=== PATIENT | female | born 1940 | race African-American/Black ===

== ENCOUNTER → 2016-07-27 | Outpatient (CLI) | payer MEDICARE, BC ==
[~2016-07-27] MED LIST: ALBU05 IH; AMIO200T PO; APIX2.5T PO; BENA10TA3 PO; CA C PO; CALC-899 PO; CARV25TA47 PO; CILO100T PO; DIGO125T82 PO; FLUT1DIS3 IH; FLUT9.9S NS; GABA-531 PO; MONT10TA24 PO; MULT-1146 PO; ROSU40TA PO; SIMV40TA5 PO; SPIR25TA4 PO; TRAM50TA3 PO; VITA-297 PO; WARF1TAB PO; [UNRECOGNIZED DRUG - CODE] PO; [UNRECOGNIZED DRUG - CODE] PO
[2016-07-27 10:40] LABS: HEMATOCRIT. 37.1 % (36.0-48.0); HEMOGLOBIN. 12.7 g/dL (12.0-16.0); MEAN CORPUSCULAR VOLUME 87.5 fL (81.0-99.0); MEAN PLATELET VOLUME 7.4 fl (7.4-10.4); PLATELET 224 x1000/uL (130-400); RED BLOOD CELL COUNT 4.24 mill/uL (4.2-5.4); RED CELL DISTRIBUTION WIDTH 13.1 % (11.6-14.6)
[2016-07-27 10:47] LABS: INR 1.1
[2016-07-27 11:00] LABS: PLATELET ESTIMATE NORMAL
[2016-07-27 11:22] LABS: CLARITY URINE CLEAR (CLEAR); COLOR URINE YELLOW (YELLOW); GLUCOSE URINE NEGATIVE (NEGATIVE); KETONES URINE NEGATIVE (NEGATIVE); LEUKOCYTE ESTERASE URINE 1+ (NEGATIVE); NITRITE URINE NEGATIVE (NEGATIVE); OCCULT BLOOD URINE NEGATIVE (NEGATIVE); PROTEIN URINE NEGATIVE (NEGATIVE); SPECIFIC GRAVITY URINE 1.016 (1.005-1.030); UROBILINOGEN URINE 0.2 E.U./dL (0.2-1.0)
== END | disposition home or self-care (01) ==
LOC: RAD 09:11
PROVIDERS: ATTEND Orthopaedic Surgery
DX: Z01.818 Encounter for other preprocedural examination (principal); I51.7 Cardiomegaly; Z95.810 Presence of automatic (implantable) cardiac defibrillator
CPT/HCPCS: 36415; 71020; 80048; 81001; 85025; 85610; 85730; 93005

== ENCOUNTER → 2017-08-15 | Outpatient (CLI) | payer MEDICARE, BC ==
[~2017-08-15] MED LIST changes: +ASCO-316 PO; -SPIR25TA4 PO; +SPIR25TA6 PO; -VITA-297 PO; +VITA-340 PO; -WARF1TAB PO; +WARF1TAB85 PO; +WARF2.5T83 PO; -[UNRECOGNIZED DRUG - CODE] PO; -[UNRECOGNIZED DRUG - CODE] PO
== END | disposition home or self-care (01) ==
LOC: RAD 13:53
PROVIDERS: ATTEND Specialist
DX: I51.7 Cardiomegaly (principal); R06.09 Other forms of dyspnea
CPT/HCPCS: 71046

== ENCOUNTER 2018-09-03 13:25 | Emergency (ER) | payer BC, MEDICARE ==
[~2018-09-03] VITALS: Ht 162.6 cm; Wt 73.0 kg
[~2018-09-03 13:25] MED LIST changes: +BENA10TA10 PO; -BENA10TA3 PO
[2018-09-03] MEDS ORDERED: IPRATROPIUM BROMIDE (0.02%) 0.5MG/2.5ML NEB HHN STA (15:26)
[2018-09-03 15:51] LABS: BASOPHILS % 0.9 % (0.0-2.0); HEMATOCRIT. 33.8 % (36.0-48.0); HEMOGLOBIN. 11.4 g/dL (12.0-16.0); LYMPHOCYTES % 52.6 % (20.0-50.0); MEAN CORPUSCULAR HEMOGLOBIN 31.2 pg (28.0-32.0); MEAN CORPUSCULAR VOLUME 92.3 fL (81.0-99.0); MEAN PLATELET VOLUME 7.9 fl (7.4-10.4); MONOCYTES % 13.6 % (2.0-8.0); NEUTROPHILS % 27.9 % (40.0-76.0); PLATELET 151 x1000/uL (130-400); RED BLOOD CELL COUNT 3.66 mill/uL (4.2-5.4)
[2018-09-03 15:57] LABS: CHLORIDE 111 mEq/L (98-107)
[2018-09-03] MEDS: ALBUTEROL (0.083%) 2.5MG/3ML NEB HHN SCH ×4 (17:00→18:21)
[2018-09-03 18:45] VITALS: BP 121/61
== END 2018-09-03 18:54 | disposition home or self-care (01) ==
LOC: ER 13:25
DX: J32.9 Chronic sinusitis, unspecified (principal); R94.39 Abnormal result of other cardiovascular function study; I11.0 Hypertensive heart disease with heart failure; I50.9 Heart failure, unspecified; Z88.3 Allergy status to other anti-infective agents; Z86.711 Personal history of pulmonary embolism; Z79.01 Long term (current) use of anticoagulants; J45.909 Unspecified asthma, uncomplicated
CPT/HCPCS: 36415; 71045; 80053; 83880; 84484; 85025; 93005; 94640; 99285; J7611

== ENCOUNTER 2019-10-12 01:27 | Emergency (ER) | payer BC ==
[~2019-10-12] VITALS: Ht 162.6 cm; Wt 75.0 kg
[~2019-10-12 01:27] MED LIST changes: -BENA10TA10 PO; +BENA10TA74 PO; +DIGO125T80 PO; -DIGO125T82 PO; -MONT10TA24 PO; +MONT10TA26 PO; +SIMV-46 PO; -SIMV40TA5 PO
[2019-10-12 01:30] VITALS: BP 139/78
[2019-10-12] MEDS ORDERED: TETANUS, DIPHTHERIA, PERTUSSIS VAC/PF 0.5ML (>7YR OLD) IM ONE (03:00)
== END 2019-10-12 04:21 | disposition home or self-care (01) ==
LOC: ER 01:27
DX: L76.22 Postprocedural hemorrhage of skin and subcutaneous tissue following other procedure (principal); Y83.8 Other surgical procedures as the cause of abnormal reaction of the patient, or of later complication, without mention of misadventure at the time of the procedure; Z23 Encounter for immunization; I11.0 Hypertensive heart disease with heart failure; I50.9 Heart failure, unspecified; I48.91 Unspecified atrial fibrillation
CPT/HCPCS: 90471; 90715; 99283

== ENCOUNTER → 2020-11-17 | Outpatient (CLI) | payer BC ==
[~2020-11-17] MED LIST changes: +ALBUTEROL (0.083%) 2.5MG/3ML NEB ONE; -GABA-531 PO; +GABA-532 PO; -MONT10TA26 PO; +MONT10TA32 PO; -SIMV-46 PO; -TRAM50TA3 PO; -VITA-340 PO; -WARF1TAB85 PO; -WARF2.5T83 PO
== END | disposition home or self-care (01) ==
LOC: PF 12:51
PROVIDERS: ATTEND Internal Medicine Pulmonary Disease
DX: J45.909 Unspecified asthma, uncomplicated (principal); Z20.822 Contact with and (suspected) exposure to COVID-19; J44.9 Chronic obstructive pulmonary disease, unspecified
CPT/HCPCS: 87426; 94060; 94727; 94729

== ENCOUNTER 2021-08-25 12:02 | Emergency (ER) | payer BC ==
[~2021-08-25] VITALS: Ht 160 cm; Wt 80.0 kg
[~2021-08-25 12:02] MED LIST changes: -ALBUTEROL (0.083%) 2.5MG/3ML NEB ONE; +MONT-39 PO; -MONT10TA32 PO
[2021-08-25 12:04] VITALS: BP 132/106
[2021-08-25] MEDS ORDERED: ACETAMINOPHEN 500MG TABLET PO ONE (12:30)
[2021-08-25] MEDS ORDERED: ACET-2708 MT (14:31)
== END 2021-08-25 12:42 | disposition home or self-care (01) ==
LOC: ER 12:02
DX: S70.01XA Contusion of right hip, initial encounter (principal); E78.00 Pure hypercholesterolemia, unspecified; I11.0 Hypertensive heart disease with heart failure; I50.9 Heart failure, unspecified; J45.909 Unspecified asthma, uncomplicated; Z88.1 Allergy status to other antibiotic agents; Z79.899 Other long term (current) drug therapy; Z98.890 Other specified postprocedural states; W01.0XXA Fall on same level from slipping, tripping and stumbling without subsequent striking against object, initial encounter; Y93.89 Activity, other specified; Y92.89 Other specified places as the place of occurrence of the external cause; Y99.8 Other external cause status
CPT/HCPCS: 73502; 99283

== ENCOUNTER 2021-12-12 17:24 | Inpatient (IN) | payer BC ==
[~2021-12-12] VITALS: Ht 162.6 cm; Wt 72.6 kg
[~2021-12-12 17:24] MED LIST changes: +ACET-2708 MT; -CILO100T PO; +CILO100T3 PO
[2021-12-12 22:58] LABS: CHLORIDE 108 mEq/L (98-107)
[2021-12-12 23:00] LABS: BASOPHILS % 0.4 % (0.0-2.0); EOSINOPHILS % 1.3 % (0.0-5.0); HEMATOCRIT. 37.5 % (36.0-48.0); HEMOGLOBIN. 12.6 g/dL (12.0-16.0); LYMPHOCYTES % 31.2 % (20.0-50.0); MEAN CORPUSCULAR HEMOGLOBIN 30.2 pg (28.0-32.0); MEAN CORPUSCULAR VOLUME 89.8 fL (81.0-99.0); MEAN PLATELET VOLUME 8.4 fl (7.4-10.4); MONOCYTES % 7.4 % (2.0-8.0); NEUTROPHILS % 59.7 % (40.0-76.0); PLATELET 164 x1000/uL (130-400); RED BLOOD CELL COUNT 4.18 mill/uL (4.2-5.4); RED CELL DISTRIBUTION WIDTH 13.7 % (11.6-14.6)
[2021-12-13] MEDS ORDERED: FUROSEMIDE 20MG/2ML VIAL IVP ONE (02:15)
[2021-12-13] MEDS ORDERED: ONDANSETRON HCL 4MG/2ML INJ IV ONE (02:15)
[2021-12-13] MEDS ORDERED: MAGNESIUM/ALUMINUM HYDROXIDE/SIMETHICONE 30ML UDC PO PRN (07:30)
[2021-12-13] MEDS ORDERED: CLONIDINE 0.1MG TABLET PO PRN (07:30)
[2021-12-13] MEDS ORDERED: NITROGLYCERIN 0.4MG TABLET SL SL PRN (07:30)
[2021-12-13] MEDS ORDERED: NA PHOS,M-B/NA PHOS,DI-BA ENEMA 118ML PR PRN (07:30)
[2021-12-13] MEDS ORDERED: KETOROLAC 15MG/ML VIAL IV PRN (07:30)
[2021-12-13] MEDS ORDERED: DOCUSATE SODIUM 100MG CAPSULE PO PRN (07:30)
[2021-12-13] MEDS ORDERED: ONDANSETRON HCL 4MG/2ML INJ IV PRN (07:30)
[2021-12-13] MEDS ORDERED: GUAIFENESIN 200MG/10ML SUGAR FREE UDC PO PRN (07:30)
[2021-12-13] MEDS ORDERED: IPRATROPIUM/ALBUTEROL 0.5-3(2.5)MG/3ML NEB NEB PRN (07:30)
[2021-12-13] MEDS ORDERED: ACETAMINOPHEN 325MG TABLET PO PRN ×2 (07:30)
[2021-12-13] MEDS ORDERED: APIXABAN 5 MG TABLET PO SCH (08:00)
[2021-12-13 08:58] LABS: VITAMIN B12 SERUM 1600 pg/mL (211-911)
[2021-12-13] MEDS ORDERED: ASPIRIN 325MG EC TABLET PO SCH (09:00)
[2021-12-13 09:14] LABS: FOLIC ACID (FOLATE) SERUM > 20.00 ng/mL (>5.38)
[2021-12-13 10:00] VITALS: BP 121/60
[2021-12-13] MEDS: FUROSEMIDE 40MG/4ML VIAL IVP SCH ×2 (11:22→17:45)
[2021-12-13] MEDS: FAMOTIDINE 20MG TABLET PO SCH (11:22)
[2021-12-13] MEDS: SPIRONOLACTONE 25MG TABLET PO SCH ×2 (11:23→21:54)
[2021-12-13] MEDS: CARVEDILOL 6.25 MG TABLET PO SCH ×3 (11:24→21:55)
[2021-12-13 12:00] VITALS: BP 110/52
[2021-12-13 16:00] VITALS: BP 112/55
[2021-12-13] MEDS ORDERED: INFLUENZA VACCINE 05/PF 0.5 ML SYRINGE IM ONE (16:00)
[2021-12-13] MEDS ORDERED: PNEUMOCOCCAL 23-VAL P-SAC VAC 0.5 ML IM ONE (16:00)
[2021-12-13 16:34] LABS: HDL CHOLESTEROL 54 mg/dL (40-59); LDL CHOLESTEROL 61 mg/dL (5-100); T4 FREE 1.27 ng/dL (0.76-1.46); TOTAL IRON BINDING CAPACITY 283 ug/dL (250-450)
[2021-12-13 16:40] LABS: DIGOXIN < 0.1 ng/mL (0.9-2.0)
[2021-12-13] MEDS: DIGOXIN 125MCG TABLET PO SCH (17:46)
[2021-12-13] MEDS: APIXABAN 2.5 MG TABLET PO SCH (17:46)
[2021-12-13 17:51] LABS: CREATINE KINASE MB FRACTION 1.7 ng/mL (0.5-3.6)
[2021-12-13 20:00] VITALS: BP 124/76
[2021-12-13 20:57] LABS: CREATINE KINASE MB FRACTION 1.5 ng/mL (0.5-3.6)
[2021-12-13] MEDS ORDERED: ZOLPIDEM TARTRATE 5MG TABLET PO PRN (21:00)
[2021-12-13] MEDS: ATORVASTATIN CALCIUM 40MG TABLET PO SCH (21:54)
[2021-12-14] VITALS: BP 121/72
[2021-12-14 04:00] VITALS: BP 131/81
[2021-12-14 06:57] LABS: HEMATOCRIT. 37.5 % (36.0-48.0); HEMOGLOBIN. 12.9 g/dL (12.0-16.0); MEAN CORPUSCULAR HEMOGLOBIN 30.4 pg (28.0-32.0); MEAN CORPUSCULAR VOLUME 88.3 fL (81.0-99.0); MEAN PLATELET VOLUME 8.4 fl (7.4-10.4); PLATELET 162 x1000/uL (130-400); RED BLOOD CELL COUNT 4.24 mill/uL (4.2-5.4); RED CELL DISTRIBUTION WIDTH 13.9 % (11.6-14.6)
[2021-12-14] MEDS: FUROSEMIDE 40MG/4ML VIAL IVP SCH ×2 (07:05→17:55)
[2021-12-14] MEDS: APIXABAN 2.5 MG TABLET PO SCH (07:05)
[2021-12-14 08:00] VITALS: BP 118/56
[2021-12-14 08:44] LABS: DIGOXIN 0.2 ng/mL (0.9-2.0); PHOSPHORUS 2.7 mg/dL (2.5-4.9)
[2021-12-14 09:13] LABS: PLATELET ESTIMATE NORMAL
[2021-12-14] MEDS: FAMOTIDINE 20MG TABLET PO SCH (09:23)
[2021-12-14] MEDS: CARVEDILOL 6.25 MG TABLET PO SCH ×2 (09:23→21:14)
[2021-12-14] MEDS: SPIRONOLACTONE 25MG TABLET PO SCH ×2 (09:23→21:15)
[2021-12-14 11:15] LABS: *AMPHETAMINES SCREEN URINE NEGATIVE (NEGATIVE); *BARBITURATES SCREEN URINE NEGATIVE (NEGATIVE); *BENZODIAZEPINES SCREEN URINE NEGATIVE (NEGATIVE); *COCAINE SCREEN URINE NEGATIVE (NEGATIVE); CANNABINOID URINE SCREEN NEGATIVE (NEGATIVE); METHADONE URINE SCREEN NEGATIVE (NEGATIVE); OPIATES URINE SCREEN NEGATIVE (NEGATIVE); PHENCYCLIDINE URINE SCREEN NEGATIVE (NEGATIVE)
[2021-12-14 12:00] VITALS: BP 108/55
[2021-12-14] MEDS ORDERED: MAGNESIUM 2 G PREMIX 50 ML IV NR (15:30)
[2021-12-14 16:00] VITALS: BP 130/80
[2021-12-14] MEDS: DIGOXIN 125MCG TABLET PO SCH (17:55)
[2021-12-14] MEDS: APIXABAN 5 MG TABLET PO SCH (17:55)
[2021-12-14 20:00] VITALS: BP 129/54
[2021-12-14] MEDS: ATORVASTATIN CALCIUM 40MG TABLET PO SCH (21:13)
[2021-12-15] VITALS: BP 146/65
[2021-12-15 04:00] VITALS: BP 117/67
[2021-12-15] MEDS: APIXABAN 5 MG TABLET PO SCH ×2 (05:54→16:59)
[2021-12-15] MEDS: FUROSEMIDE 40MG/4ML VIAL IVP SCH ×2 (05:55→16:59)
[2021-12-15 06:51] LABS: HEMATOCRIT 37.8 % (36.0-48.0); HEMOGLOBIN 13.1 g/dL (12.0-16.0); MEAN CORPUSCULAR HEMOGLOBIN 30.6 pg (28.0-32.0); MEAN CORPUSCULAR VOLUME 88.3 fL (81.0-99.0); PLATELET 179 x1000/uL (130-400); RED BLOOD CELL COUNT 4.28 mill/uL (4.2-5.4); RED CELL DISTRIBUTION WIDTH 13.8 % (11.6-14.6)
[2021-12-15 08:22] VITALS: BP 131/68
[2021-12-15 08:31] LABS: DIGOXIN 0.4 ng/mL (0.9-2.0)
[2021-12-15] MEDS: CARVEDILOL 6.25 MG TABLET PO SCH ×2 (08:38→21:22)
[2021-12-15] MEDS: FAMOTIDINE 20MG TABLET PO SCH (08:38)
[2021-12-15] MEDS: SPIRONOLACTONE 25MG TABLET PO SCH ×2 (08:39→21:22)
[2021-12-15 11:42] VITALS: BP 101/51
[2021-12-15 15:37] VITALS: BP 107/63
[2021-12-15] MEDS: DIGOXIN 125MCG TABLET PO SCH (16:59)
[2021-12-15 20:00] VITALS: BP 130/68
[2021-12-15] MEDS: ATORVASTATIN CALCIUM 40MG TABLET PO SCH (21:22)
[2021-12-16] VITALS: BP 132/70
[2021-12-16 04:00] VITALS: BP 121/68
[2021-12-16] MEDS: FUROSEMIDE 40MG/4ML VIAL IVP SCH ×2 (05:25→17:15)
[2021-12-16] MEDS: APIXABAN 5 MG TABLET PO SCH ×2 (05:25→17:15)
[2021-12-16 07:42] VITALS: BP 123/64
[2021-12-16] MEDS: SPIRONOLACTONE 25MG TABLET PO SCH ×2 (08:25→21:00)
[2021-12-16] MEDS: CARVEDILOL 6.25 MG TABLET PO SCH ×2 (08:25→21:00)
[2021-12-16] MEDS: FAMOTIDINE 20MG TABLET PO SCH (08:25)
[2021-12-16 09:13] LABS: HEMATOCRIT 38.9 % (36.0-48.0); HEMOGLOBIN 13.4 g/dL (12.0-16.0); MEAN CORPUSCULAR HEMOGLOBIN 30.6 pg (28.0-32.0); MEAN CORPUSCULAR VOLUME 88.7 fL (81.0-99.0); PLATELET 184 x1000/uL (130-400); RED BLOOD CELL COUNT 4.39 mill/uL (4.2-5.4); RED CELL DISTRIBUTION WIDTH 13.7 % (11.6-14.6)
[2021-12-16 10:23] LABS: DIGOXIN 0.6 ng/mL (0.9-2.0); PHOSPHORUS 3.7 mg/dL (2.5-4.9)
[2021-12-16 12:29] VITALS: BP 111/65
[2021-12-16 15:14] VITALS: BP 110/58
[2021-12-16] MEDS: DIGOXIN 125MCG TABLET PO SCH (17:15)
[2021-12-16 20:00] VITALS: BP 101/62
[2021-12-16] MEDS: ATORVASTATIN CALCIUM 40MG TABLET PO SCH (21:55)
[2021-12-17 03:41] VITALS: BP 105/56
[2021-12-17] MEDS: APIXABAN 5 MG TABLET PO SCH (06:00)
[2021-12-17] MEDS: FUROSEMIDE 40MG/4ML VIAL IVP SCH (06:24)
[2021-12-17 08:00] VITALS: BP 106/83
[2021-12-17] MEDS: CARVEDILOL 6.25 MG TABLET PO SCH (08:00)
[2021-12-17] MEDS: SPIRONOLACTONE 25MG TABLET PO SCH (10:04)
[2021-12-17] MEDS: FAMOTIDINE 20MG TABLET PO SCH (10:04)
[2021-12-17 12:00] VITALS: BP 129/72
[2021-12-17] MEDS ORDERED: APIX5TAB PO (14:41)
[2021-12-17] MEDS ORDERED: LORA10TA7 PO (14:42)
[2021-12-17] MEDS ORDERED: TRAZ-252 PO (14:43)
[2021-12-17] MEDS ORDERED: FAMO40TA7 PO (14:43)
[2021-12-17] MEDS ORDERED: MONT10TA21 PO (14:44)
[2021-12-17] MEDS ORDERED: GABA-529 PO (14:45)
[2021-12-17] MEDS ORDERED: FLUT1BLS INH (14:50)
[2021-12-17 16:00] VITALS: BP 118/60
[2021-12-17 16:14] VITALS: BP 118/60
== END 2021-12-17 17:08 | disposition home health service (06) | DRG 280 ==
LOC: ER 17:36 → 8WST 12-13 03:55
PROVIDERS: ADMIT Internal Medicine; ATTEND Internal Medicine
DX: I11.0 Hypertensive heart disease with heart failure (principal); I21.A1 Myocardial infarction type 2; I50.23 Acute on chronic systolic (congestive) heart failure; I31.39 Other pericardial effusion (noninflammatory); J06.9 Acute upper respiratory infection, unspecified; I42.9 Cardiomyopathy, unspecified; I48.0 Paroxysmal atrial fibrillation; E78.00 Pure hypercholesterolemia, unspecified; I34.0 Nonrheumatic mitral (valve) insufficiency; E78.5 Hyperlipidemia, unspecified; J45.909 Unspecified asthma, uncomplicated; K21.9 Gastro-esophageal reflux disease without esophagitis; G62.9 Polyneuropathy, unspecified; Z96.649 Presence of unspecified artificial hip joint; Z88.8 Allergy status to other drugs, medicaments and biological substances; Z79.899 Other long term (current) drug therapy; Z86.718 Personal history of other venous thrombosis and embolism; Z86.711 Personal history of pulmonary embolism; Z79.01 Long term (current) use of anticoagulants; Z82.49 Family history of ischemic heart disease and other diseases of the circulatory system; Z95.810 Presence of automatic (implantable) cardiac defibrillator
CPT/HCPCS: 36415; 71045; 80048; 80053; 80061; 80162; 80305; 82550; 82553; 82607; 82746; 83036; 83540; 83550; 83735; 83880; 84100; 84439; 84443; 84484; 85025; 85027; 85379; 93005; 93306; 93970; 97162; 99285; J1940; J2405; J3475

== ENCOUNTER 2021-12-29 11:47 | Inpatient (IN) | payer BC ==
[~2021-12-29] VITALS: Ht 162.6 cm; Wt 78.0 kg
[~2021-12-29 11:47] MED LIST changes: -APIX2.5T PO; +APIX5TAB PO; -CALC-899 PO; +FAMO40TA7 PO; +FLUT1BLS INH; -FLUT1DIS3 IH; +GABA-529 PO; -GABA-532 PO; +LORA10TA7 PO; -MONT-39 PO; +MONT10TA21 PO; +TRAZ-252 PO
[2021-12-29] MEDS ORDERED: ACETAMINOPHEN 325MG TABLET PO NR (18:45)
[2021-12-29 21:12] LABS: BASOPHILS % 0.7 % (0.0-2.0); EOSINOPHILS % 2.6 % (0.0-5.0); HEMATOCRIT. 34.9 % (36.0-48.0); HEMOGLOBIN. 12.3 g/dL (12.0-16.0); MEAN CORPUSCULAR HEMOGLOBIN 31.1 pg (28.0-32.0); MEAN CORPUSCULAR VOLUME 88.3 fL (81.0-99.0); MEAN PLATELET VOLUME 7.6 fl (7.4-10.4); MONOCYTES % 9.9 % (2.0-8.0); NEUTROPHILS % 42.8 % (40.0-76.0); PLATELET 214 x1000/uL (130-400); RED BLOOD CELL COUNT 3.96 mill/uL (4.2-5.4); RED CELL DISTRIBUTION WIDTH 13.8 % (11.6-14.6)
[2021-12-29 21:14] LABS: *AMPHETAMINES SCREEN URINE NEGATIVE (NEGATIVE); *BARBITURATES SCREEN URINE NEGATIVE (NEGATIVE); *BENZODIAZEPINES SCREEN URINE NEGATIVE (NEGATIVE); *COCAINE SCREEN URINE NEGATIVE (NEGATIVE); CANNABINOID URINE SCREEN NEGATIVE (NEGATIVE); METHADONE URINE SCREEN NEGATIVE (NEGATIVE); OPIATES URINE SCREEN NEGATIVE (NEGATIVE); PHENCYCLIDINE URINE SCREEN NEGATIVE (NEGATIVE)
[2021-12-29 21:21] LABS: CHLORIDE 111 mEq/L (98-107)
[2021-12-29 21:30] LABS: ETHANOL BLOOD < 10 mg/dL
[2021-12-29] MEDS ORDERED: ASPIRIN 325MG EC TABLET PO NR (22:00)
[2021-12-29] MEDS ORDERED: NITROGLYCERIN OINT 1GM/INCH UDPKT TD NR (22:00)
[2021-12-29] MEDS ORDERED: FUROSEMIDE 40MG/4ML VIAL IVP NR (22:00)
[2021-12-30] MEDS ORDERED: ACETAMINOPHEN 325MG TABLET PO PRN (02:00)
[2021-12-30] MEDS ORDERED: DOCUSATE SODIUM 100MG CAPSULE PO PRN (02:00)
[2021-12-30] MEDS ORDERED: HYDROCODONE/ACETAMINOPHEN 5/325MG TABLET PO PRN (02:00)
[2021-12-30] MEDS ORDERED: MAGNESIUM/ALUMINUM HYDROXIDE/SIMETHICONE 30ML UDC PO PRN (02:00)
[2021-12-30] MEDS ORDERED: CLONIDINE 0.1MG TABLET PO PRN (02:00)
[2021-12-30 02:33] VITALS: BP 117/64
[2021-12-30] MEDS ORDERED: NITROGLYCERIN 0.4MG TABLET SL SL PRN (03:45)
[2021-12-30 04:00] VITALS: BP 115/55
[2021-12-30 07:41] VITALS: BP 103/50
[2021-12-30 07:57] LABS: HEMATOCRIT. 34.4 % (36.0-48.0); HEMOGLOBIN. 11.7 g/dL (12.0-16.0); MEAN CORPUSCULAR HEMOGLOBIN 30.6 pg (28.0-32.0); MEAN CORPUSCULAR VOLUME 89.7 fL (81.0-99.0); MEAN PLATELET VOLUME 8.1 fl (7.4-10.4); PLATELET 211 x1000/uL (130-400); RED BLOOD CELL COUNT 3.84 mill/uL (4.2-5.4); RED CELL DISTRIBUTION WIDTH 13.7 % (11.6-14.6)
[2021-12-30] MEDS: LORATADINE 10MG TABLET PO SCH (08:31)
[2021-12-30] MEDS: GABAPENTIN 100MG CAPSULE PO SCH ×3 (08:31→16:44)
[2021-12-30] MEDS: SPIRONOLACTONE 25MG TABLET PO SCH (08:31)
[2021-12-30] MEDS: FAMOTIDINE 20MG TABLET PO SCH (08:32)
[2021-12-30] MEDS: CILOSTAZOL 50 MG TABLET PO SCH ×2 (08:32→16:45)
[2021-12-30] MEDS: APIXABAN 5 MG TABLET PO SCH ×2 (08:32→16:44)
[2021-12-30 08:33] LABS: CHLORIDE 109 mEq/L (98-107)
[2021-12-30] MEDS: ASPIRIN 81MG EC TABLET PO SCH (08:33)
[2021-12-30 08:43] LABS: CREATINE KINASE 48 IU/L (26-192); CREATINE KINASE MB FRACTION < 1.0 ng/mL (0.5-3.6)
[2021-12-30] MEDS: BENAZEPRIL 10MG TABLET PO SCH ×2 (08:49→16:44)
[2021-12-30 08:54] LABS: HDL CHOLESTEROL 46 mg/dL (40-59); LDL CHOLESTEROL 57 mg/dL (5-100); PHOSPHORUS 2.3 mg/dL (2.5-4.9); T4 FREE 1.31 ng/dL (0.76-1.46)
[2021-12-30] MEDS: FUROSEMIDE 40MG/4ML VIAL IVP SCH (09:01)
[2021-12-30] MEDS: FLUTICASONE PROPIONATE 50MCG/SPRAY BOTTLE BOTHNSTRLS SCH (09:03)
[2021-12-30] MEDS: FLUTICASONE/VILANTEROL 200-25 BLST.W.DEV ORI SCH (09:03)
[2021-12-30 09:53] LABS: DIGOXIN 0.1 ng/mL (0.9-2.0)
[2021-12-30 11:51] VITALS: BP 133/62
[2021-12-30 13:34] LABS: PLATELET ESTIMATE NORMAL
[2021-12-30] MEDS ORDERED: NALOXONE HCL 0.4MG/ML VIAL IV PRN (15:30)
[2021-12-30 15:42] VITALS: BP 113/76
[2021-12-30 16:08] LABS: CREATINE KINASE 52 IU/L (26-192); CREATINE KINASE MB FRACTION < 1.0 ng/mL (0.5-3.6)
[2021-12-30] MEDS: MONTELUKAST SODIUM 10MG TABLET PO SCH (16:44)
[2021-12-30] MEDS: GUAIFENESIN 200MG/10ML SUGAR FREE UDC PO PRN (16:48)
[2021-12-30 20:45] VITALS: BP 90/40
[2021-12-30] MEDS: ATORVASTATIN CALCIUM 40MG TABLET PO SCH (20:49)
[2021-12-30] MEDS ORDERED: MEDICATION NOT ON FORMULARY EA (Rosuvastatin Calcium (Crestor) 40 MG) PO SCH (21:00)
[2021-12-30] MEDS ORDERED: [UNRECOGNIZED DRUG - REMARK] NS SCH (21:00)
[2021-12-30] MEDS: TRAZODONE HCL 50MG TABLET PO SCH (21:00)
[2021-12-30 21:04] LABS: CREATINE KINASE 51 IU/L (26-192); CREATINE KINASE MB FRACTION < 1.0 ng/mL (0.5-3.6)
[2021-12-31] VITALS (8 sets, daily range): BP systolic 78–118; BP diastolic 35–82
[2021-12-31] MEDS ORDERED: SODIUM CHLORIDE 0.9% 500 ML IV ONE ×2 (02:15)
[2021-12-31] MEDS: GABAPENTIN 100MG CAPSULE PO SCH ×3 (08:25→16:34)
[2021-12-31] MEDS: LORATADINE 10MG TABLET PO SCH (08:25)
[2021-12-31] MEDS: APIXABAN 5 MG TABLET PO SCH ×2 (08:26→16:34)
[2021-12-31] MEDS: ASPIRIN 81MG EC TABLET PO SCH (08:26)
[2021-12-31] MEDS: CILOSTAZOL 50 MG TABLET PO SCH ×2 (08:26→16:35)
[2021-12-31] MEDS: FLUTICASONE/VILANTEROL 200-25 BLST.W.DEV ORI SCH (08:26)
[2021-12-31] MEDS: FAMOTIDINE 20MG TABLET PO SCH (08:26)
[2021-12-31] MEDS: FUROSEMIDE 40MG/4ML VIAL IVP SCH (08:27)
[2021-12-31] MEDS: SPIRONOLACTONE 25MG TABLET PO SCH (08:28)
[2021-12-31] MEDS: BENAZEPRIL 10MG TABLET PO SCH ×2 (08:28→16:34)
[2021-12-31] MEDS: FLUTICASONE PROPIONATE 50MCG/SPRAY BOTTLE BOTHNSTRLS SCH (08:30)
[2021-12-31] MEDS: MONTELUKAST SODIUM 10MG TABLET PO SCH (16:33)
[2021-12-31] MEDS: ACETAMINOPHEN 325MG TABLET PO PRN (16:35)
[2021-12-31] MEDS: ATORVASTATIN CALCIUM 40MG TABLET PO SCH (20:39)
[2021-12-31] MEDS: TRAZODONE HCL 50MG TABLET PO SCH (20:40)
[2022-01-01] VITALS (14 sets, daily range): BP systolic 82–113; BP diastolic 40–57
[2022-01-01 06:59] LABS: HEMATOCRIT 34.5 % (36.0-48.0); HEMOGLOBIN 11.7 g/dL (12.0-16.0); MEAN CORPUSCULAR HEMOGLOBIN 30.1 pg (28.0-32.0); MEAN CORPUSCULAR VOLUME 88.9 fL (81.0-99.0); PLATELET 192 x1000/uL (130-400); RED BLOOD CELL COUNT 3.88 mill/uL (4.2-5.4)
[2022-01-01] MEDS: SPIRONOLACTONE 25MG TABLET PO SCH (09:00)
[2022-01-01] MEDS: BENAZEPRIL 10MG TABLET PO SCH (09:00)
[2022-01-01] MEDS: FLUTICASONE/VILANTEROL 200-25 BLST.W.DEV ORI SCH (09:26)
[2022-01-01] MEDS: FLUTICASONE PROPIONATE 50MCG/SPRAY BOTTLE BOTHNSTRLS SCH (09:26)
[2022-01-01] MEDS: LORATADINE 10MG TABLET PO SCH (09:27)
[2022-01-01] MEDS: FAMOTIDINE 20MG TABLET PO SCH (09:27)
[2022-01-01] MEDS: CILOSTAZOL 50 MG TABLET PO SCH (09:28)
[2022-01-01] MEDS: GABAPENTIN 100MG CAPSULE PO SCH ×3 (09:28→17:06)
[2022-01-01] MEDS: APIXABAN 5 MG TABLET PO SCH (09:28)
[2022-01-01] MEDS: FUROSEMIDE 40MG/4ML VIAL IVP SCH (09:29)
[2022-01-01] MEDS: ASPIRIN 81MG EC TABLET PO SCH (09:30)
[2022-01-01] MEDS: AMIODARONE HCL 200 MG TABLET PO SCH (09:33)
[2022-01-01 10:56] LABS: BG BASE EXCESS -4.4 mmol/L (-2.0-2.0); BG CARBOXYHEMOGLOBIN 0.3 % (0.5-1.5); BG FRACTION INSPIRED OXYGEN 36; BG HCO3 ACT 17.8 mmol/L (22.0-26.0); BG METHEMOGLOBIN 0.4 % (0.0-1.5); BG OXYHEMOGLOBIN 93.3 % (94.0-97.0); BG PCO2 25.1 mmHg (35.0-45.0); BG PH 7.468 (7.350-7.450); BG PO2 66.8 mmHg (75.0-100.0); BG SAMPLE SITE RIGHT BRACHIAL; BG TOTAL HEMOGLOBIN 12.4 g/dL (12.0-18.0); BG VENT MODE NASAL CANNULA
[2022-01-01] MEDS: IPRATROPIUM/ALBUTEROL 0.5-3(2.5)MG/3ML NEB HHN PRN (13:10)
[2022-01-01] MEDS ORDERED: SODIUM CHLORIDE 0.9% 1000ML BAG (SEPSIS BOLUS) IV NR (14:15)
[2022-01-01] MEDS ORDERED: MAGNESIUM 2 G PREMIX 50 ML IV NR (15:00)
[2022-01-01] MEDS: SODIUM CHLORIDE 0.9% 1,000 ML IV SCH ×2 (17:06→23:52)
[2022-01-01] MEDS: MONTELUKAST SODIUM 10MG TABLET PO SCH (17:06)
[2022-01-01] MEDS: APIXABAN 2.5 MG TABLET PO SCH (17:30)
[2022-01-01] MEDS ORDERED: AZEL137S7 BOTHNSTRLS (17:59)
[2022-01-01] MEDS ORDERED: KCL 20MEQ/100ML PREMIX 100 ML IV NR (18:30)
[2022-01-01] MEDS: TRAZODONE HCL 50MG TABLET PO SCH (20:55)
[2022-01-01] MEDS: ATORVASTATIN CALCIUM 40MG TABLET PO SCH (20:55)
[2022-01-01] MEDS: PHENYLEPHRINE 50 MG in DEXT 5% WATER 245 ML IV PRN (23:51)
[2022-01-02] VITALS (104 sets, daily range): BP systolic 59–142; BP diastolic 28–91
[2022-01-02] MEDS ORDERED: VANCOMYCIN 1G PREMIX 200 ML IV ONE (01:00)
[2022-01-02] MEDS: ACETAMINOPHEN 325MG TABLET PO PRN (01:28)
[2022-01-02] MEDS ORDERED: VANCOMYCIN 1.25GM PMX (XELLIA) 250 ML IV NR (02:30)
[2022-01-02 02:39] LABS: CREATINE KINASE MB FRACTION 1.5 ng/mL (0.5-3.6)
[2022-01-02] MEDS: PIPERACILLIN/TAZOBACTAM 3.375G in DEXT 5% WATER 50ML IV SCH ×3 (03:10→21:29)
[2022-01-02] MEDS ORDERED: PIPERACILLIN/TAZOBACTAM 3.375GM/50ML PREMIX IV SCH (06:00)
[2022-01-02] MEDS: FLUTICASONE/VILANTEROL 200-25 BLST.W.DEV ORI SCH (09:00)
[2022-01-02] MEDS: APIXABAN 2.5 MG TABLET PO SCH ×2 (09:18→16:00)
[2022-01-02] MEDS: ASPIRIN 81MG EC TABLET PO SCH (09:18)
[2022-01-02] MEDS: LORATADINE 10MG TABLET PO SCH (09:18)
[2022-01-02] MEDS: GABAPENTIN 100MG CAPSULE PO SCH ×3 (09:18→16:00)
[2022-01-02] MEDS: FAMOTIDINE 20MG TABLET PO SCH (09:19)
[2022-01-02] MEDS: SODIUM CHLORIDE 0.9% 1,000 ML IV SCH ×2 (09:28→17:37)
[2022-01-02 09:56] LABS: HEMOGLOBIN 10.4 g/dL (12.0-16.0); MEAN CORPUSCULAR HEMOGLOBIN 30.7 pg (28.0-32.0); MEAN CORPUSCULAR VOLUME 92.2 fL (81.0-99.0); PLATELET 139 x1000/uL (130-400); RED BLOOD CELL COUNT 3.37 mill/uL (4.2-5.4); RED CELL DISTRIBUTION WIDTH 14.7 % (11.6-14.6)
[2022-01-02] MEDS: PHENYLEPHRINE 50 MG in DEXT 5% WATER 245 ML IV PRN (10:45)
[2022-01-02] MEDS: MONTELUKAST SODIUM 10MG TABLET PO SCH (16:00)
[2022-01-02] MEDS ORDERED: SODIUM CHLORIDE 0.9% 1000ML BAG (SEPSIS BOLUS) IV NR (17:00)
[2022-01-02] MEDS ORDERED: KCL 20MEQ/100ML PREMIX 100 ML IV NR (17:30)
[2022-01-02] MEDS ORDERED: POTASSIUM CHLORIDE 20MEQ/PACKET PO NR (17:30)
[2022-01-02] MEDS ORDERED: NOREPINEPHRINE 8 MG in DEXT 5% WATER 242 ML IV PRN (18:00)
[2022-01-02] MEDS: MIDODRINE HCL 5MG TABLET PO SCH (18:06)
[2022-01-02] MEDS: TRAZODONE HCL 50MG TABLET PO SCH (20:34)
[2022-01-02] MEDS: ONDANSETRON HCL 4MG/2ML INJ IV PRN (20:34)
[2022-01-02] MEDS: ATORVASTATIN CALCIUM 40MG TABLET PO SCH (20:34)
[2022-01-03] VITALS (93 sets, daily range): BP systolic 64–154; BP diastolic 21–102
[2022-01-03] MEDS: PHENYLEPHRINE 50 MG in DEXT 5% WATER 245 ML IV PRN ×2 (01:14→11:23)
[2022-01-03] MEDS: PIPERACILLIN/TAZOBACTAM 3.375G in DEXT 5% WATER 50ML IV SCH ×3 (05:04→21:29)
[2022-01-03 06:11] LABS: BASOPHILS % 0.3 % (0.0-2.0); EOSINOPHILS % 0.9 % (0.0-5.0); HEMATOCRIT. 31.7 % (36.0-48.0); HEMOGLOBIN. 10.9 g/dL (12.0-16.0); LYMPHOCYTES % 20.3 % (20.0-50.0); MEAN CORPUSCULAR HEMOGLOBIN 30.5 pg (28.0-32.0); MEAN CORPUSCULAR VOLUME 89.2 fL (81.0-99.0); MEAN PLATELET VOLUME 8.1 fl (7.4-10.4); MONOCYTES % 4.9 % (2.0-8.0); NEUTROPHILS % 73.6 % (40.0-76.0); PLATELET 166 x1000/uL (130-400); RED BLOOD CELL COUNT 3.56 mill/uL (4.2-5.4); RED CELL DISTRIBUTION WIDTH 14.5 % (11.6-14.6)
[2022-01-03 06:12] LABS: CHLORIDE 113 mEq/L (98-107)
[2022-01-03 06:28] LABS: PHOSPHORUS 1.7 mg/dL (2.5-4.9)
[2022-01-03] MEDS: APIXABAN 2.5 MG TABLET PO SCH ×2 (08:34→16:42)
[2022-01-03] MEDS: ASPIRIN 81MG EC TABLET PO SCH (08:34)
[2022-01-03] MEDS: LORATADINE 10MG TABLET PO SCH (08:34)
[2022-01-03] MEDS: AMIODARONE HCL 200 MG TABLET PO SCH (08:34)
[2022-01-03] MEDS: FUROSEMIDE 40MG/4ML VIAL IVP SCH (08:34)
[2022-01-03] MEDS: ACETAMINOPHEN 325MG TABLET PO PRN (08:34)
[2022-01-03] MEDS: MIDODRINE HCL 5MG TABLET PO SCH ×3 (08:34→16:42)
[2022-01-03] MEDS: GABAPENTIN 100MG CAPSULE PO SCH ×3 (08:34→16:42)
[2022-01-03] MEDS: FAMOTIDINE 20MG TABLET PO SCH (08:34)
[2022-01-03] MEDS: SODIUM CHLORIDE 0.9% 1,000 ML IV SCH (11:24)
[2022-01-03 13:28] LABS: CLARITY URINE TURBID (CLEAR); COLOR URINE YELLOW (YELLOW); KETONES URINE NEGATIVE (NEGATIVE); LEUKOCYTE ESTERASE URINE TRACE (NEGATIVE); NITRITE URINE NEGATIVE (NEGATIVE); OCCULT BLOOD URINE 2+ (NEGATIVE); PROTEIN URINE NEGATIVE (NEGATIVE); SPECIFIC GRAVITY URINE 1.008 (1.005-1.030); UROBILINOGEN URINE 0.2 E.U./dL (0.2-1.0)
[2022-01-03] MEDS: MONTELUKAST SODIUM 10MG TABLET PO SCH (16:42)
[2022-01-03] MEDS: IPRATROPIUM/ALBUTEROL 0.5-3(2.5)MG/3ML NEB HHN PRN (18:33)
[2022-01-03] MEDS: ATORVASTATIN CALCIUM 40MG TABLET PO SCH (21:29)
[2022-01-03] MEDS: TRAZODONE HCL 50MG TABLET PO SCH (21:29)
[2022-01-03] MEDS: GUAIFENESIN 200MG/10ML SUGAR FREE UDC PO PRN (22:39)
[2022-01-03] MEDS: ONDANSETRON HCL 4MG/2ML INJ IV PRN (22:39)
[2022-01-04] VITALS (55 sets, daily range): BP systolic 67–136; BP diastolic 32–86
[2022-01-04] MEDS: PHENYLEPHRINE 50 MG in DEXT 5% WATER 245 ML IV PRN ×3 (01:49→21:43)
[2022-01-04] MEDS: GUAIFENESIN 200MG/10ML SUGAR FREE UDC PO PRN (04:02)
[2022-01-04] MEDS: PIPERACILLIN/TAZOBACTAM 3.375G in DEXT 5% WATER 50ML IV SCH ×3 (05:04→21:12)
[2022-01-04 06:12] LABS: HEMATOCRIT. 32.6 % (36.0-48.0); HEMOGLOBIN. 11.1 g/dL (12.0-16.0); MEAN CORPUSCULAR HEMOGLOBIN 30.1 pg (28.0-32.0); MEAN CORPUSCULAR VOLUME 88.4 fL (81.0-99.0); PLATELET 181 x1000/uL (130-400); RED BLOOD CELL COUNT 3.68 mill/uL (4.2-5.4); RED CELL DISTRIBUTION WIDTH 14.3 % (11.6-14.6)
[2022-01-04 06:31] LABS: PHOSPHORUS 2.4 mg/dL (2.5-4.9)
[2022-01-04] MEDS ORDERED: MAGNESIUM 2 G PREMIX 50 ML IV NR (07:30)
[2022-01-04] MEDS: ASPIRIN 81MG EC TABLET PO SCH (08:51)
[2022-01-04] MEDS: MIDODRINE HCL 5MG TABLET PO SCH ×3 (08:52→17:13)
[2022-01-04] MEDS: FAMOTIDINE 20MG TABLET PO SCH (08:52)
[2022-01-04] MEDS: GABAPENTIN 100MG CAPSULE PO SCH ×3 (08:52→17:13)
[2022-01-04] MEDS: LORATADINE 10MG TABLET PO SCH (08:52)
[2022-01-04] MEDS: APIXABAN 2.5 MG TABLET PO SCH ×2 (08:52→17:13)
[2022-01-04] MEDS: FLUTICASONE/VILANTEROL 200-25 BLST.W.DEV ORI SCH (09:00)
[2022-01-04] MEDS: SODIUM CHLORIDE 0.9% 1,000 ML IV SCH (10:12)
[2022-01-04] MEDS: MONTELUKAST SODIUM 10MG TABLET PO SCH (17:13)
[2022-01-04 18:05] LABS: NUCLEATED RED BLOOD CELLS 1 /100 WBC; PLATELET ESTIMATE NORMAL
[2022-01-04] MEDS: IPRATROPIUM/ALBUTEROL 0.5-3(2.5)MG/3ML NEB HHN SCH (21:01)
[2022-01-04] MEDS: ATORVASTATIN CALCIUM 40MG TABLET PO SCH (21:12)
[2022-01-04] MEDS: ACETAMINOPHEN 325MG TABLET PO PRN (21:12)
[2022-01-05] VITALS (45 sets, daily range): BP systolic 85–135; BP diastolic 43–79
[2022-01-05] MEDS: IPRATROPIUM/ALBUTEROL 0.5-3(2.5)MG/3ML NEB HHN SCH ×6 (01:01→20:41)
[2022-01-05] MEDS: ACETYLCYSTEINE 200MG/ML 20% VIAL 4ML INH SCH ×3 (01:02→15:29)
[2022-01-05] MEDS: PIPERACILLIN/TAZOBACTAM 3.375G in DEXT 5% WATER 50ML IV SCH ×3 (05:19→23:00)
[2022-01-05] MEDS: SODIUM CHLORIDE 0.9% 1,000 ML IV SCH (05:19)
[2022-01-05 06:00] LABS: HEMATOCRIT 33.3 % (36.0-48.0); HEMOGLOBIN 11.1 g/dL (12.0-16.0); MEAN CORPUSCULAR VOLUME 89.8 fL (81.0-99.0); PLATELET 181 x1000/uL (130-400); RED CELL DISTRIBUTION WIDTH 14.8 % (11.6-14.6)
[2022-01-05] MEDS ORDERED: LIDOCAINE HCL 1% 30ML VIAL (10MG/ML) ONE (08:04)
[2022-01-05] MEDS: FLUTICASONE/VILANTEROL 200-25 BLST.W.DEV ORI SCH (09:00)
[2022-01-05] MEDS: LORATADINE 10MG TABLET PO SCH (09:13)
[2022-01-05] MEDS: APIXABAN 2.5 MG TABLET PO SCH ×2 (09:14→17:36)
[2022-01-05] MEDS: FAMOTIDINE 20MG TABLET PO SCH (09:14)
[2022-01-05] MEDS: ASPIRIN 81MG EC TABLET PO SCH (09:14)
[2022-01-05] MEDS: GABAPENTIN 100MG CAPSULE PO SCH ×3 (09:14→17:36)
[2022-01-05] MEDS: MIDODRINE HCL 5MG TABLET PO SCH ×3 (09:15→17:37)
[2022-01-05] MEDS: AMIODARONE HCL 200 MG TABLET PO SCH (09:18)
[2022-01-05] MEDS ORDERED: MAGNESIUM 1 G PREMIX 100 ML IV NR (10:45)
[2022-01-05] MEDS ORDERED: DIGOXIN 500MCG/2ML AMP IV NR (11:00)
[2022-01-05] MEDS ORDERED: SODIUM PHOS,M-BASIC-D-BASIC 15 MM in DEXT 5% WATER 245 ML IV ONE (12:00)
[2022-01-05] MEDS: MONTELUKAST SODIUM 10MG TABLET PO SCH (17:37)
[2022-01-05] MEDS: ATORVASTATIN CALCIUM 40MG TABLET PO SCH (21:12)
[2022-01-05] MEDS: ACETAMINOPHEN 325MG TABLET PO PRN (21:12)
[2022-01-06] VITALS (22 sets, daily range): BP systolic 103–150; BP diastolic 47–83
[2022-01-06] MEDS: SODIUM CHLORIDE 0.9% 1,000 ML IV SCH ×2 (00:18→21:57)
[2022-01-06] MEDS: ACETYLCYSTEINE 200MG/ML 20% VIAL 4ML INH SCH ×4 (00:24→23:27)
[2022-01-06] MEDS: IPRATROPIUM/ALBUTEROL 0.5-3(2.5)MG/3ML NEB HHN SCH ×7 (04:00→23:27)
[2022-01-06] MEDS: PIPERACILLIN/TAZOBACTAM 3.375G in DEXT 5% WATER 50ML IV SCH ×3 (05:20→23:07)
[2022-01-06 06:27] LABS: HEMATOCRIT 29.4 % (36.0-48.0); HEMOGLOBIN 9.9 g/dL (12.0-16.0); MEAN CORPUSCULAR HEMOGLOBIN 30.1 pg (28.0-32.0); MEAN CORPUSCULAR VOLUME 89.4 fL (81.0-99.0); PLATELET 169 x1000/uL (130-400); RED BLOOD CELL COUNT 3.29 mill/uL (4.2-5.4); RED CELL DISTRIBUTION WIDTH 14.2 % (11.6-14.6)
[2022-01-06 06:36] LABS: CHLORIDE 114 mEq/L (98-107)
[2022-01-06] MEDS: ASPIRIN 81MG EC TABLET PO SCH (10:16)
[2022-01-06] MEDS: APIXABAN 2.5 MG TABLET PO SCH ×2 (10:16→17:45)
[2022-01-06] MEDS: LORATADINE 10MG TABLET PO SCH (10:16)
[2022-01-06] MEDS: MIDODRINE HCL 5MG TABLET PO SCH ×3 (10:16→17:45)
[2022-01-06] MEDS: FAMOTIDINE 20MG TABLET PO SCH (10:16)
[2022-01-06] MEDS: GABAPENTIN 100MG CAPSULE PO SCH ×3 (10:16→17:44)
[2022-01-06] MEDS: ACETAMINOPHEN 325MG TABLET PO PRN (10:29)
[2022-01-06] MEDS ORDERED: ENOXAPARIN 60MG/0.6ML SYR SUBCUT ONE (12:00)
[2022-01-06] MEDS: MONTELUKAST SODIUM 10MG TABLET PO SCH (17:45)
[2022-01-06] MEDS: ATORVASTATIN CALCIUM 40MG TABLET PO SCH (21:56)
[2022-01-07] VITALS (18 sets, daily range): BP systolic 91–153; BP diastolic 51–83
[2022-01-07] MEDS: IPRATROPIUM/ALBUTEROL 0.5-3(2.5)MG/3ML NEB HHN SCH ×3 (03:30→13:33)
[2022-01-07 06:17] LABS: HEMATOCRIT 28.6 % (36.0-48.0); HEMOGLOBIN 9.7 g/dL (12.0-16.0); MEAN CORPUSCULAR HEMOGLOBIN 30.3 pg (28.0-32.0); MEAN CORPUSCULAR VOLUME 89.1 fL (81.0-99.0); PLATELET 193 x1000/uL (130-400); RED BLOOD CELL COUNT 3.21 mill/uL (4.2-5.4)
[2022-01-07 06:27] LABS: CHLORIDE 113 mEq/L (98-107)
[2022-01-07] MEDS: ACETYLCYSTEINE 200MG/ML 20% VIAL 4ML INH SCH (09:03)
[2022-01-07] MEDS: APIXABAN 2.5 MG TABLET PO SCH (10:12)
[2022-01-07] MEDS: MIDODRINE HCL 5MG TABLET PO SCH ×3 (10:12→16:56)
[2022-01-07] MEDS: ASPIRIN 81MG EC TABLET PO SCH (10:13)
[2022-01-07] MEDS: LORATADINE 10MG TABLET PO SCH (10:13)
[2022-01-07] MEDS: FAMOTIDINE 20MG TABLET PO SCH (10:13)
[2022-01-07] MEDS: GABAPENTIN 100MG CAPSULE PO SCH ×3 (10:13→16:56)
[2022-01-07] MEDS ORDERED: ENOXAPARIN 60MG/0.6ML SYR SUBCUT ONE (12:00)
[2022-01-07] MEDS: APIXABAN 5 MG TABLET PO SCH (16:56)
[2022-01-07] MEDS: MONTELUKAST SODIUM 10MG TABLET PO SCH (16:56)
[2022-01-07] MEDS: SODIUM CHLORIDE 0.9% 1,000 ML IV SCH (16:59)
[2022-01-07] MEDS: ATORVASTATIN CALCIUM 40MG TABLET PO SCH (21:38)
[2022-01-08] VITALS: BP 132/60
[2022-01-08] MEDS: ACETYLCYSTEINE 200MG/ML 20% VIAL 4ML INH SCH ×4 (00:22→22:00)
[2022-01-08] MEDS: IPRATROPIUM/ALBUTEROL 0.5-3(2.5)MG/3ML NEB HHN SCH ×6 (00:22→20:00)
[2022-01-08 04:00] VITALS: BP 120/53
[2022-01-08] MEDS: MIDODRINE HCL 5MG TABLET PO SCH ×4 (08:13→16:08)
[2022-01-08] MEDS: FAMOTIDINE 20MG TABLET PO SCH (08:14)
[2022-01-08] MEDS: AMIODARONE HCL 200 MG TABLET PO SCH (08:14)
[2022-01-08] MEDS: GABAPENTIN 100MG CAPSULE PO SCH ×3 (08:14→16:08)
[2022-01-08] MEDS: APIXABAN 5 MG TABLET PO SCH ×2 (08:14→16:08)
[2022-01-08] MEDS: ASPIRIN 81MG EC TABLET PO SCH (08:15)
[2022-01-08] MEDS: LORATADINE 10MG TABLET PO SCH (08:15)
[2022-01-08] MEDS: SODIUM CHLORIDE 0.9% 1,000 ML IV SCH (11:14)
[2022-01-08] MEDS: MONTELUKAST SODIUM 10MG TABLET PO SCH (16:08)
[2022-01-08 20:09] VITALS: BP 149/75
[2022-01-08] MEDS: ATORVASTATIN CALCIUM 40MG TABLET PO SCH (20:35)
[2022-01-08 21:00] VITALS: BP 149/75
[2022-01-09] VITALS (7 sets, daily range): BP systolic 93–146; BP diastolic 58–64
[2022-01-09] MEDS: IPRATROPIUM/ALBUTEROL 0.5-3(2.5)MG/3ML NEB HHN SCH ×4 (04:00→12:00)
[2022-01-09] MEDS: ACETYLCYSTEINE 200MG/ML 20% VIAL 4ML INH SCH (06:00)
[2022-01-09] MEDS: LORATADINE 10MG TABLET PO SCH (08:48)
[2022-01-09] MEDS: MIDODRINE HCL 5MG TABLET PO SCH ×3 (08:48→12:51)
[2022-01-09] MEDS: GABAPENTIN 100MG CAPSULE PO SCH ×2 (08:48→12:51)
[2022-01-09] MEDS: ASPIRIN 81MG EC TABLET PO SCH (08:48)
[2022-01-09] MEDS: APIXABAN 5 MG TABLET PO SCH (08:48)
[2022-01-09] MEDS: FAMOTIDINE 20MG TABLET PO SCH (08:48)
[2022-01-09] MEDS: ACETAMINOPHEN 325MG TABLET PO PRN (12:51)
[2022-01-09] MEDS: GUAIFENESIN 200MG/10ML SUGAR FREE UDC PO PRN (15:40)
[2022-01-09] MEDS ORDERED: CARV25TA47 PO (16:35)
== END 2022-01-09 18:00 | disposition home or self-care (01) | DRG 280 ==
LOC: ER 11:47 → 8WST 23:21 → ENRESERV 23:55 → 8WST 12-30 03:19 → CVICU 01-01 22:36 → 3WST 01-07 16:37
PROVIDERS: ADMIT Internal Medicine; ATTEND Internal Medicine
PROC: 02HV33Z Insertion of Infusion Device into Superior Vena Cava, Percutaneous Approach (ICD-10-PCS; principal; 2022-01-05)
PROC: B548ZZA Ultrasonography of Superior Vena Cava, Guidance (ICD-10-PCS; 2022-01-05)
DX: I11.0 Hypertensive heart disease with heart failure (principal); I21.A1 Myocardial infarction type 2; A41.9 Sepsis, unspecified organism; I50.23 Acute on chronic systolic (congestive) heart failure; J96.00 Acute respiratory failure, unspecified whether with hypoxia or hypercapnia; J69.0 Pneumonitis due to inhalation of food and vomit; N17.9 Acute kidney failure, unspecified; G93.40 Encephalopathy, unspecified; I31.39 Other pericardial effusion (noninflammatory); I47.20 Ventricular tachycardia, unspecified; J98.11 Atelectasis; I48.91 Unspecified atrial fibrillation; E78.5 Hyperlipidemia, unspecified; K21.9 Gastro-esophageal reflux disease without esophagitis; E78.00 Pure hypercholesterolemia, unspecified; E83.52 Hypercalcemia; J45.909 Unspecified asthma, uncomplicated; H91.90 Unspecified hearing loss, unspecified ear; Z20.822 Contact with and (suspected) exposure to COVID-19; Z79.01 Long term (current) use of anticoagulants; Z79.899 Other long term (current) drug therapy; Z88.1 Allergy status to other antibiotic agents; Z95.810 Presence of automatic (implantable) cardiac defibrillator; Z86.711 Personal history of pulmonary embolism; Z86.718 Personal history of other venous thrombosis and embolism
CPT/HCPCS: 36415; 36573; 36600; 71045; 80048; 80053; 80061; 80162; 80305; 80320; 81003; 82306; 82330; 82375; 82550; 82553; 82805; 82962; 83605; 83735; 83880; 83970; 84100; 84145; 84439; 84443; 84484; 85025; 85027; 85379; 87070; 87426; 92610; 93005; 93922; 93970; 94640; 97116; 97162; 97166; 97530; 99291; C1725; C1893; C9803; J1160; J1940; J2370; J2405; J2543; J3370; J3475; J3480; J3490; J7030; J7060; J7608; A4315; G0480